=== PATIENT | female | born 1950 | race Caucasian/White ===

== ENCOUNTER → 2016-10-12 | Outpatient (CLI) | payer BC ==
[2015-05-16 15:30] VITALS: BP 158/64
[~2016-10-12] MED LIST: AMLO1TAB12 PO; CIPR250T PO; CRESTOR10 MG PO; GLIP5TAB10 PO; HYDR-2678 PO; IOHEXOL 240 MG/ML 50ML VIAL. PO ONE; IOHEXOL 300 MG/ML 100ML VIAL. IV ONE; METF500T4 PO; METO-269 PO
--- NOTE | 2016-10-12 12:47 | KCIC ---
PROCEDURE CT of the abdomen and pelvis with contrast HISTORY Left lower quadrant pain, vomiting, nausea for few weeks. Hysterectomy, appendectomy and cholecystectomy. COMPARISON May 24, 2014 FINDINGS Mild patchy opacities are identified in the right lower lobe of the lung, most compatible with infiltrate or pneumonia. No evidence of pneumoperitoneum. Liver, spleen, pancreas, adrenals and kidneys appear unremarkable. The gallbladder is surgically absent. Aorta demonstrates no aneurysm. Small left parapelvic cyst is seen unchanged since prior study. No bowel obstruction. No pericolonic inflammation. Appendix is surgically absent as per history. No ascites. Non-opacified urinary bladder demonstrates no obvious abnormality. No evidence of a pelvic mass. No significant lymph node enlargement. IMPRESSION 1. Mild opacity in the right lower lobe, most likely infiltrate or pneumonia. 2. No acute findings identified in the abdomen or pelvis. Electronically signed by: Faustino Briscoe MD (Oct 12, 2016 12:46:18)
== END | disposition home or self-care (01) ==
LOC: KCIC CT 07:58
PROVIDERS: ATTEND Internal Medicine
DX: R10.32 Left lower quadrant pain (principal); R11.2 Nausea with vomiting, unspecified
CPT/HCPCS: 74177; 82565; Q9966; Q9967

== ENCOUNTER 2016-10-18 03:07 | Emergency (ER) | payer BC ==
[~2016-10-18] VITALS: Ht 162.6 cm; Wt 116.6 kg
[~2016-10-18 03:07] MED LIST changes: -IOHEXOL 240 MG/ML 50ML VIAL. PO ONE; -IOHEXOL 300 MG/ML 100ML VIAL. IV ONE
[2016-10-18 03:54] LABS: BASO % 1 % (0-3); EOS % 3 % (0-3); HEMATOCRIT 40.9 % (36.0-47.0); HEMOGLOBIN 13.5 g/dL (12.0-15.5); LYMPH # 1.9 x10^3/uL (1.0-4.8); LYMPH % 30 % (24-48); MEAN CORPUSCULAR HEMOGLOBIN 29 pg (25-35); MEAN CORPUSCULAR HGB CONC 33 g/dL (31-37); MEAN CORPUSCULAR VOLUME 86 fL (79-100); MONO % 6 % (0-9); NEUT % 60 % (31-73); PLATELET COUNT 243 x10^3/uL (140-400); RED BLOOD COUNT 4.74 x10^6/uL (3.50-5.40); RED CELL DISTRIBUTION WIDTH 14.3 % (11.5-14.5); WHITE BLOOD COUNT 6.2 x10^3/uL (4.0-11.0)
[2016-10-18 04:07] LABS: CREATININE 1.1 mg/dL (0.6-1.0); POTASSIUM 3.9 mmol/L (3.5-5.1)
[2016-10-18] MEDS ORDERED: LIDOCAINE 4% KIT 4 ML SOLUTION. TP ONE (04:30)
[2016-10-18] MEDS ORDERED: ALBUTEROL SULFATE 2.5 MG/3 ML NEBU. NEB ONE (04:30)
--- NOTE | 2016-10-18 04:45 | PHYS DOC ---
Past Medical History Past Medical History: Diabetes-Type II, High Cholesterol, Hypertension Past Surgical History: Appendectomy, Cholecystectomy, Hysterectomy Additional Past Surgical Histo: RIGHT ROTATOR CUFF BILAT KNE AND BILAT FEET Alcohol Use: None Drug Use: None Adult General Chief Complaint Chief Complaint: CHEST PAIN HPI HPI This is a 66-year-old female who is coming in with worsening cough and mild shortness of breath for the last 5-6 days. Patient was initially seen in urgent care on Tuesday and given a Z-Ross for a pneumonia that was demonstrated on plain film. She states she did not improve and went to see her primary care doctor 3 days later, Dr. Britton, who placed the patient on Levaquin for which she is now taken for 5 days. Patient states she still is having cough and mild shortness of breath. She has been using inhaler for her wheezing with mild relief. She denies any nausea or vomiting. She did have an abdominal CT approximately 6 days ago for her ongoing nausea and vomiting that showed pneumonia in her right lung base on 10/12/16. She states she is not having mild chest discomfort with her cough and she'll and come in for evaluation for this. Her pain is made worse with breathing and coughing. She states she has PMH significant for diabetes but denies any history of heart problems. Review of Systems Review of Systems Constitutional: Denies fever or chills [] Eyes: Denies change in visual acuity, redness, or eye pain [] HENT: Denies nasal congestion or sore throat [] Respiratory: Has cough, has shortness of breath [] Cardiovascular: No additional information not addressed in HPI [] GI: Denies abdominal pain, nausea, vomiting, bloody stools or diarrhea [] : Denies dysuria or hematuria [] Musculoskeletal: Denies back pain or joint pain [] Integument: Denies rash or skin lesions [] Neurologic: Denies headache, focal weakness or sensory changes [] Endocrine: Denies polyuria or polydipsia [] Current Medications Current Medications Current Medications Medications (Trade) Dose Ordered Sig/Morgan Start Time Stop Time Status Last Admin Dose Admin Albuterol Sulfate (Ventolin Neb Soln) 2.5 mg 1X ONCE 10/18/16 04:30 10/18/16 04:31 DC 10/18/16 04:20 2.5 MG Ketorolac Tromethamine (Toradol) 30 mg 1X ONCE 1/16/17 05:00 10/18/16 05:01 DC 10/18/16 05:06 30 MG Lidocaine HCl (Lta Kit) 4 ml 1X ONCE 10/18/16 04:30 10/18/16 04:31 DC 10/18/16 04:20 4 ML Promethazine HCl/ Codeine (Phenergan With Codeine) 5 ml 1X ONCE 10/18/16 05:00 10/18/16 05:01 DC 10/18/16 05:06 5 ML Allergies Allergies Allergies Coded Allergies Type Severity Reaction Last Updated Verified acetaminophen Allergy Intermediate Rash 05/16/15 Yes oxycodone Allergy Intermediate Rash 05/16/15 Yes Physical Exam Physical Exam Constitutional: Well developed, well nourished, no acute distress, non-toxic appearance. [] HENT: Normocephalic, atraumatic, bilateral external ears normal, oropharynx moist, no oral exudates, nose normal. [] Eyes: PERRLA, EOMI, conjunctiva normal, no discharge. [] Neck: Normal range of motion, no tenderness, supple, no stridor. [] Cardiovascular:Heart rate regular rhythm, no murmur [] Lungs & Thorax: Slight expiratory wheeze bilaterally with no signs of respiratory distress [] Abdomen: Bowel sounds normal, soft, no tenderness, no masses, no pulsatile masses. [] Skin: Warm, dry, no erythema, no rash. [] Back: No tenderness, no CVA tenderness. [] Extremities: No tenderness, no cyanosis, no clubbing, ROM intact, no edema. [] Neurologic: Alert and oriented X 3, normal motor function, normal sensory function, no focal deficits noted. [] Psychologic: Affect normal, judgement normal, mood normal. [] Current Patient Data Vital Signs Vital Signs Date Time Temp Pulse Resp B/P Pulse Ox O2 Delivery O2 Flow Rate FiO2 10/18/16 04:25 97 Room Air 10/18/16 03:25 98.3 85 25 210/95 98.3 Lab Values Laboratory Tests Test 10/18/16 03:50 White Blood Count 6.2x10^3/uL (4.0-11.0) Red Blood Count 4.74x10^6/uL (3.50-5.40) Hemoglobin 13.5g/dL (12.0-15.5) Hematocrit 40.9% (36.0-47.0) Mean Corpuscular Volume 86fL (79-100) Mean Corpuscular Hemoglobin 29pg (25-35) Mean Corpuscular Hemoglobin Concent 33g/dL (31-37) Red Cell Distribution Width 14.3% (11.5-14.5) Platelet Count 243x10^3/uL (140-400) Neutrophils (%) (Auto) 60% (31-73) Lymphocytes (%) (Auto) 30% (24-48) Monocytes (%) (Auto) 6% (0-9) Eosinophils (%) (Auto) 3% (0-3) Basophils (%) (Auto) 1% (0-3) Neutrophils # (Auto) 3.7x10^3uL (1.8-7.7) Lymphocytes # (Auto) 1.9x10^3/uL (1.0-4.8) Monocytes # (Auto) 0.4x10^3/uL (0.0-1.1) Eosinophils # (Auto) 0.2x10^3/uL (0.0-0.7) Basophils # (Auto) 0.0x10^3/uL (0.0-0.2) Sodium Level 143mmol/L (136-145) Potassium Level 3.9mmol/L (3.5-5.1) Chloride Level 107mmol/L (98-107) Carbon Dioxide Level 25mmol/L (21-32) Anion Gap 11 (6-14) Blood Urea Nitrogen 18mg/dL (7-20) Creatinine 1.1mg/dL (0.6-1.0) H Estimated GFR (Cockcroft-Gault) 50.0 Glucose Level 152mg/dL (70-99) H Calcium Level 9.0mg/dL (8.5-10.1) Troponin I Quantitative < 0.017ng/mL (0.000-0.055) Laboratory Tests 10/18/16 03:50 Laboratory Tests 10/18/16 03:50 EKG EKG EKG as interpreted by me reveals a sinus rhythm with a leftward axis with a rate of 87 bpm. There are no acute ischemic findings on this EKG. Radiology/Procedures Radiology/Procedures Portable 1 view of the chest as interpreted by me did not reveal any acute cardiopulmonary process. Course & Med Decision Making Course & Med Decision Making Pertinent Labs and Imaging studies reviewed. (See chart for details) This 66-year-old female who's had ongoing cough with some mild chest discomfort has a plain film today that does not demonstrate any pneumonia. I will be administering a nebulized albuterol and lidocaine treatment for her cough and shortness of breath and will reassess her following this treatment and likely be sending her home to follow closely with her primary care doctor as I believe her symptoms are likely more related to an ongoing bronchitis and are not cardiac in etiology. Her EKG and cardiac enzymes are unrevealing. Her laboratory workup has been unrevealing thus far. Laboratory workup is unrevealing. Upon my reassessment, the patient feels much improved after Phenergan with codeine, IV Toradol, and nebulized albuterol and lidocaine. Counseled patient length that she is to remain off work for the next several days and continue to use her albuterol inhaler at home and I will also extend out her course of steroids as I cannot prescribe her anti-inflammatories due to her history of ulcer. I will also write her for Phenergan and codeine for her cough. She is very agreeable with this plan and she agreed to follow-up with her doctor next several days for symptom resolution. Dragon Disclaimer Dragon Disclaimer This electronic medical record was generated, in whole or in part, using a voice recognition dictation system. Departure Departure Impression: Primary Impression: Cough Additional Impression: Chest pain Disposition: 01 HOME, SELF-CARE Condition: STABLE Referrals: ADITYA BRITTON MD (PCP) Patient Instructions: Cough, Adult, [id number] Additional Instructions: Please follow up with your primary doctor in the next 2-3 days for your cough and chest wall pain. Take your medications as prescribed and finish your antibiotic as instructed. Return to the ER if you develop any worsening of your symptoms. Scripts Prednisone 20 Mg [id number] Mg PO DAILY #5 TAB Prov:EVELIA RIVERA DO 10/18/16 Promethazine/Phenyleph/Codeine (Promethazine Vc-Codeine Syrup)473 Ml Syrup5 Ml PO Q6HRS #120 ML Prov:EVELIA RIVERA DO 10/18/16 Problem Qualifiers EVELIA RIVERA DO Oct 18, 2016 04:45
[2016-10-18] MEDS ORDERED: PROMETH/CODEINE 6.25/10MG 5 ML SYRUP. PO ONE (05:00)
[2016-10-18] MEDS ORDERED: KETOROLAC TROMETHAMINE 30 MG/ML SYRINGE. IV ONE (05:00)
[2016-10-18 05:18] VITALS: BP 184/115
[2016-10-18] MEDS ORDERED: PROM118S3 PO (05:29)
[2016-10-18] MEDS ORDERED: PRED20TA PO (05:30)
--- NOTE | 2016-10-18 06:44 | EKG ---
[facility] [address] [place] [address] Test Date: 2016-10-18 Test Time: 03:18:55 Pat Name: LAURE DANIELLE Department: Room: Gender: F [employer]: : 1950 Requested By: EVELIA RIVERA Order Number: [id number] Reading MD: Yuly Wagner Measurements Intervals [place] Rate: 87 P: -94 PA: 142 QRS: -26 QRSD: 86 T: 60 QT: 374 QTc: 456 Interpretive Statements SINUS RHYTHM LEFTWARD AXIS NO SPECIFIC ECG ABNORMALITIES RI6.01 Compared to ECG 02/01/2013 13:56:05 No significant changes Electronically Signed On 10-19-2016 9:35:41 MANAGER VISUAL by Yuly Wagner
--- NOTE | 2016-10-18 07:21 | RAD ---
Portable chest, 10/18/2016: History: Cough, chest pain The heart size and pulmonary vascularity are normal. No pulmonary infiltrates are seen. There is no evidence of pleural fluid. IMPRESSION: No acute cardiopulmonary abnormality is detected.
== END 2016-10-18 05:41 | disposition home or self-care (01) ==
LOC: ER 03:07
DX: R07.9 Chest pain, unspecified (principal); E11.9 Type 2 diabetes mellitus without complications; I10 Essential (primary) hypertension; E78.00 Pure hypercholesterolemia, unspecified; Z88.5 Allergy status to narcotic agent; Z88.6 Allergy status to analgesic agent
CPT/HCPCS: 36415; 71010; 80048; 84484; 85027; 93005; 94640; 96374; 99285; J1885